=== PATIENT | male | born 1945 | race Caucasian/White ===

== ENCOUNTER 2017-04-02 15:10 | Emergency (ER) | payer OTHER ==
[~2017-04-02 15:10] MED LIST: ASPIR 8181 MG PO; ATORVASTATIN CA40 M1 PO; CHANTIX1 M1 PO; DIGOXIN0.125 M1 PO; ENALAPRIL MALE2.5 MG PO; FLO4 PO; LAC PO; LASIX20 MG PO; LEVOFLOXACIN500 M1 PO; LOPRESSOR50 MG PO; NOR10T PO; PACERONE200 MG PO; WARFARIN SODIUM5 MG PO
[2017-04-02 16:45] LABS: BASOPHIL % 0.6 % (0-2); PLATELET COUNT 178 x10^3mcL (130-400)
[2017-04-02 16:46] LABS: RED CELL DISTRIBUTION WIDTH 16.7 % (11.5-14.5)
[2017-04-02 16:54] LABS: CALCIUM 8.5 mg/dL (8.5-10.1); CARBON DIOXIDE 30.7 mmol/L (21-32); CHLORIDE SERUM 104 mmol/L (98-107); CREATININE SERUM 2.3 mg/dL (0.7-1.3); GLUCOSE SERUM 89 mg/dL (74-106); SODIUM SERUM 143 mmol/L (136-145)
[2017-04-02 16:59] LABS: ALKALINE PHOSPHATASE 55 U/L (46-116); ALT/SGPT 73 U/L (16-63); AST/SGOT 55 U/L (15-37); BILIRUBIN TOTAL 0.9 mg/dL (0.20-1.00); TOTAL PROTEIN, SERUM 7.2 g/dL (6.4-8.2)
[2017-04-02 17:03] LABS: ALBUMIN 3.1 g/dL (3.4-5.0)
[2017-04-02 20:00] VITALS: BP 165/82
== END 2017-04-02 20:00 | disposition home or self-care (01) ==
LOC: ED 15:10
PROVIDERS: Emergency Medicine
DX: E86.0 Dehydration (principal); I12.9 Hypertensive chronic kidney disease with stage 1 through stage 4 chronic kidney disease, or unspecified chronic kidney disease; N18.9 Chronic kidney disease, unspecified; R79.89 Other specified abnormal findings of blood chemistry; I21.3 ST elevation (STEMI) myocardial infarction of unspecified site; I51.9 Heart disease, unspecified; I25.10 Atherosclerotic heart disease of native coronary artery without angina pectoris; F17.210 Nicotine dependence, cigarettes, uncomplicated; Z79.899 Other long term (current) drug therapy
CPT/HCPCS: 83880; J7040; Q0092

== ENCOUNTER 2017-05-03 12:46 | Inpatient (IN) | payer OTHER ==
[~2017-05-03] VITALS: Ht 175.3 cm; Wt 91.6 kg
[2017-05-03 13:04] LABS: BASOPHIL % 0.7 % (0-2); PLATELET COUNT 196 x10^3mcL (130-400)
[2017-05-03 13:05] LABS: RED CELL DISTRIBUTION WIDTH 15.2 % (11.5-14.5)
[2017-05-03 13:17] LABS: CALCIUM 8.5 mg/dL (8.5-10.1); CARBON DIOXIDE 24.2 mmol/L (21-32); CHLORIDE SERUM 101 mmol/L (98-107); CREATININE SERUM 2.3 mg/dL (0.7-1.3); GLUCOSE SERUM 131 mg/dL (74-106); POTASSIUM SERUM 3.5 mmol/L (3.5-5.1); SODIUM SERUM 134 mmol/L (136-145)
[2017-05-03 13:21] LABS: ALKALINE PHOSPHATASE 62 U/L (46-116); ALT/SGPT 81 U/L (16-63); AST/SGOT 69 U/L (15-37); BILIRUBIN TOTAL 1.07 mg/dL (0.20-1.00); LIPASE 173 IU/L (73-393); TOTAL PROTEIN, SERUM 7.4 g/dL (6.4-8.2); TRIGLYCERIDES 46 mg/dL (<150)
[2017-05-03 13:25] LABS: ALBUMIN 3.1 g/dL (3.4-5.0); CHOLESTEROL 111 mg/dL (<200); CHOLESTEROL/HDL RATIO 1.7; HDL CHOLESTEROL 66 mg/dL (40-60)
[2017-05-03 13:33] LABS: FREE T4 1.67 ng/dL (0.76-1.46); FREE THYROXINE INDEX 5.1 ug/dL (1.4-4.5); T4(THYROXINE) 13.3 ug/dL (4.7-13.3)
[2017-05-03 13:47] LABS: T3 TOTAL 0.56 ng/mL
[2017-05-03 14:47] VITALS: BP 145/69
[2017-05-03] MEDS ORDERED: IBUPROFEN600 MG PO (15:55)
[2017-05-03 17:29] VITALS: BP 159/73
[2017-05-03 17:41] VITALS: BP 159/73
[2017-05-03 20:32] VITALS: BP 119/65
[2017-05-04 05:37] VITALS: BP 139/63
[2017-05-04 06:25] LABS: CALCIUM 8.2 mg/dL (8.5-10.1); CARBON DIOXIDE 27.7 mmol/L (21-32); CHLORIDE SERUM 105 mmol/L (98-107); CREATININE SERUM 2.1 mg/dL (0.7-1.3); GLUCOSE SERUM 105 mg/dL (74-106); MAGNESIUM 1.8 mg/dL (1.8-2.4); PHOSPHOROUS 3.6 mg/dL (2.5-4.9); POTASSIUM SERUM 3.9 mmol/L (3.5-5.1); SODIUM SERUM 140 mmol/L (136-145)
[2017-05-04 06:31] LABS: BASOPHIL % 0.4 % (0-2); PLATELET COUNT 133 x10^3mcL (130-400); RED CELL DISTRIBUTION WIDTH 15.3 % (11.5-14.5)
[2017-05-04 09:23] VITALS: BP 108/50
[2017-05-04 14:23] LABS: UA SPECIFIC GRAVITY 1.025 (1.005-1.035); microscopic required? YES; urine erythrocyte TRACE (NEGATIVE)
[2017-05-04 15:08] VITALS: BP 118/62
[2017-05-04 18:15] VITALS: BP 124/58
[2017-05-04 21:38] VITALS: BP 111/48; BP 140/61
[2017-05-05 04:50] VITALS: BP 135/62
[2017-05-05 06:33] LABS: BASOPHIL % 0.2 % (0-2)
[2017-05-05 06:46] LABS: CARBON DIOXIDE 25.9 mmol/L (21-32); CHLORIDE SERUM 107 mmol/L (98-107); CREATININE SERUM 1.9 mg/dL (0.7-1.3); GLUCOSE SERUM 104 mg/dL (74-106); MAGNESIUM 1.7 mg/dL (1.8-2.4); PHOSPHOROUS 2.7 mg/dL (2.5-4.9); POTASSIUM SERUM 3.7 mmol/L (3.5-5.1); SODIUM SERUM 143 mmol/L (136-145)
[2017-05-05 06:47] LABS: PLATELET COUNT 125 x10^3mcL (130-400); RED CELL DISTRIBUTION WIDTH 15.3 % (11.5-14.5)
[2017-05-05 09:30] VITALS: BP 108/52
[2017-05-05 14:05] VITALS: BP 127/57
[2017-05-05 17:13] VITALS: BP 118/63
[2017-05-05 21:22] VITALS: BP 140/72
[2017-05-06 06:06] VITALS: BP 123/64
[2017-05-06 11:01] LABS: CALCIUM 8.6 mg/dL (8.5-10.1); CARBON DIOXIDE 28.3 mmol/L (21-32); CHLORIDE SERUM 103 mmol/L (98-107); CREATININE SERUM 2.1 mg/dL (0.7-1.3); GLUCOSE SERUM 117 mg/dL (74-106); PHOSPHOROUS 2.9 mg/dL (2.5-4.9); POTASSIUM SERUM 3.9 mmol/L (3.5-5.1); SODIUM SERUM 139 mmol/L (136-145)
[2017-05-06 11:02] LABS: BASOPHIL % 0.2 % (0-2); PLATELET COUNT 145 x10^3mcL (130-400)
[2017-05-06 11:06] LABS: RED CELL DISTRIBUTION WIDTH 15.6 % (11.5-14.5)
[2017-05-06 12:15] VITALS: BP 127/56
[2017-05-06] MEDS ORDERED: THI100 PO (13:02)
[2017-05-06] MEDS ORDERED: FOL1 PO (13:02)
[2017-05-06] MEDS ORDERED: THERA TABS1 TAB PO (13:02)
[2017-05-06] MEDS ORDERED: APAP/HYDROCODON1 T13 PO (13:42)
[2017-05-06] MEDS ORDERED: TYL325 PO (13:44)
[2017-05-06] MEDS ORDERED: ASPIR 8181 MG PO (13:56)
== END 2017-05-06 15:30 | disposition home or self-care (01) | DRG 312 ==
LOC: ED 12:46 → MU 13:23 → DU 13:23 → MU 05-06 09:52
PROVIDERS: Family Medicine; Specialist; ADMIT Family Medicine
DX: I95.1 Orthostatic hypotension (principal); N17.0 Acute kidney failure with tubular necrosis; I50.43 Acute on chronic combined systolic (congestive) and diastolic (congestive) heart failure; E87.1 Hypo-osmolality and hyponatremia; I42.8 Other cardiomyopathies; I11.0 Hypertensive heart disease with heart failure; I48.91 Unspecified atrial fibrillation; E78.5 Hyperlipidemia, unspecified; I25.10 Atherosclerotic heart disease of native coronary artery without angina pectoris; I25.2 Old myocardial infarction; Z68.29 Body mass index [BMI] 29.0-29.9, adult; Z95.1 Presence of aortocoronary bypass graft; F17.210 Nicotine dependence, cigarettes, uncomplicated; Z79.1 Long term (current) use of non-steroidal anti-inflammatories (NSAID); J44.9 Chronic obstructive pulmonary disease, unspecified; Z82.49 Family history of ischemic heart disease and other diseases of the circulatory system; Z80.9 Family history of malignant neoplasm, unspecified
CPT/HCPCS: 83880; 84439; 97110-GP; 97116-GP; 97530-GP; G0480; J1885; J3475; J7030; J7620; J7633; Q0092

== ENCOUNTER 2017-08-10 11:48 | Emergency (ER) | payer OTHER ==
[~2017-08-10] VITALS: Ht 172.7 cm; Wt 97.5 kg
[~2017-08-10 11:48] MED LIST changes: +APAP/HYDROCODON1 T13 PO; +FOL1 PO; +IBUPROFEN600 MG PO; +THERA TABS1 TAB PO; +THI100 PO; +TYL325 PO
[2017-08-10 14:53] VITALS: BP 155/78
== END 2017-08-10 14:53 | disposition short-term general hospital (02) ==
LOC: ED 11:48
DX: S02.82XA Fracture of other specified skull and facial bones, left side, initial encounter for closed fracture (principal); S50.812A Abrasion of left forearm, initial encounter; I10 Essential (primary) hypertension; I48.91 Unspecified atrial fibrillation; I25.2 Old myocardial infarction; Z95.1 Presence of aortocoronary bypass graft; W22.09XA Striking against other stationary object, initial encounter; Y93.89 Activity, other specified; Y99.8 Other external cause status; Y92.481 Parking lot as the place of occurrence of the external cause

== ENCOUNTER 2017-10-21 08:30 | Emergency (ER) | payer OTHER ==
[2017-10-21 10:39] VITALS: BP 105/65
== END 2017-10-21 10:55 | disposition home or self-care (01) ==
LOC: ED 08:30
DX: S50.311A Abrasion of right elbow, initial encounter (principal); G89.29 Other chronic pain; M54.9 Dorsalgia, unspecified; F17.210 Nicotine dependence, cigarettes, uncomplicated; E78.5 Hyperlipidemia, unspecified; I10 Essential (primary) hypertension; Z90.49 Acquired absence of other specified parts of digestive tract; W18.30XA Fall on same level, unspecified, initial encounter; Y93.89 Activity, other specified; Y92.89 Other specified places as the place of occurrence of the external cause; Y99.8 Other external cause status

== ENCOUNTER 2017-11-28 15:20 | Inpatient (IN) | payer BC, OTHER ==
[~2017-11-28] VITALS: Ht 172.7 cm; Wt 82.6 kg
[2017-11-28 15:52] LABS: BASOPHIL % 0.1 % (0-2); PLATELET COUNT 242 x10^3mcL (130-400)
[2017-11-28 15:54] LABS: RED CELL DISTRIBUTION WIDTH 16.6 % (11.5-14.5)
[2017-11-28 15:59] LABS: CALCIUM 7.8 mg/dL (8.5-10.1); CARBON DIOXIDE 23.5 mmol/L (21-32); CHLORIDE SERUM 99 mmol/L (98-107); CREATININE SERUM 2.6 mg/dL (0.7-1.3); GLUCOSE SERUM 111 mg/dL (74-106); POTASSIUM SERUM 3.8 mmol/L (3.5-5.1); SODIUM SERUM 134 mmol/L (136-145)
[2017-11-28 16:04] LABS: ALKALINE PHOSPHATASE 68 U/L (46-116); ALT/SGPT 74 U/L (16-63); AST/SGOT 56 U/L (15-37); BILIRUBIN TOTAL 1.2 mg/dL (0.20-1.00); TOTAL PROTEIN, SERUM 6.3 g/dL (6.4-8.2)
[2017-11-28 16:05] LABS: ALBUMIN 2.2 g/dL (3.4-5.0)
[2017-11-28 18:25] VITALS: BP 146/63
[2017-11-28 18:48] LABS: MAGNESIUM 1.7 mg/dL (1.8-2.4)
[2017-11-28 18:49] LABS: CHOLESTEROL/HDL RATIO 1.7
[2017-11-28 18:53] LABS: T3 TOTAL 0.56 ng/mL
[2017-11-28 19:02] LABS: FREE T4 2.17 ng/dL (0.76-1.46)
[2017-11-28 19:03] LABS: T4(THYROXINE) 14.4 ug/dL (4.7-13.3)
[2017-11-28 21:42] VITALS: BP 111/47
[2017-11-28 23:10] LABS: microscopic required? YES; urine erythrocyte NEGATIVE (NEGATIVE)
[2017-11-28 23:19] LABS: AMPHETAMINE QUAL UR NONE DETECTED (NEG <=1000)
[2017-11-29 06:01] VITALS: BP 104/48
[2017-11-29 07:41] LABS: CARBON DIOXIDE 25.4 mmol/L (21-32); CHLORIDE SERUM 104 mmol/L (98-107); CREATININE SERUM 2.6 mg/dL (0.7-1.3); GLUCOSE SERUM 98 mg/dL (74-106); MAGNESIUM 2.2 mg/dL (1.8-2.4); PHOSPHOROUS 3.4 mg/dL (2.5-4.9); POTASSIUM SERUM 4.2 mmol/L (3.5-5.1); SODIUM SERUM 136 mmol/L (136-145)
[2017-11-29 09:15] LABS: BASOPHIL % 0.5 % (0-2); PLATELET COUNT 188 x10^3mcL (130-400)
[2017-11-29 09:31] LABS: RED CELL DISTRIBUTION WIDTH 16.3 % (11.5-14.5)
[2017-11-29 09:52] VITALS: BP 100/44
[2017-11-29 12:30] VITALS: BP 80/36
[2017-11-29 13:00] VITALS: BP 92/44
[2017-11-29 17:30] VITALS: BP 98/43
[2017-11-29 21:04] VITALS: BP 117/45
[2017-11-30] VITALS (7 sets, daily range): BP systolic 89–133; BP diastolic 42–61
[2017-11-30 17:36] LABS: CALCIUM 7.8 mg/dL (8.5-10.1); CARBON DIOXIDE 25.9 mmol/L (21-32); CHLORIDE SERUM 103 mmol/L (98-107); CREATININE SERUM 2.1 mg/dL (0.7-1.3); GLUCOSE SERUM 98 mg/dL (74-106); MAGNESIUM 1.8 mg/dL (1.8-2.4); PHOSPHOROUS 2.8 mg/dL (2.5-4.9); POTASSIUM SERUM 3.6 mmol/L (3.5-5.1); SODIUM SERUM 136 mmol/L (136-145)
[2017-11-30 19:18] LABS: PLATELET COUNT 173 x10^3mcL (130-400)
[2017-11-30 19:30] LABS: BASOPHIL % 0 % (0-2); RED CELL DISTRIBUTION WIDTH 16.5 % (11.5-14.5)
[2017-12-01 06:21] VITALS: BP 116/61
[2017-12-01 06:29] LABS: BASOPHIL % 0.3 % (0-2); PLATELET COUNT 192 x10^3mcL (130-400); RED CELL DISTRIBUTION WIDTH 16.1 % (11.5-14.5)
[2017-12-01 06:36] LABS: CALCIUM 7.6 mg/dL (8.5-10.1); CARBON DIOXIDE 27.9 mmol/L (21-32); CHLORIDE SERUM 105 mmol/L (98-107); CREATININE SERUM 1.9 mg/dL (0.7-1.3); GLUCOSE SERUM 97 mg/dL (74-106); MAGNESIUM 1.8 mg/dL (1.8-2.4); PHOSPHOROUS 3.6 mg/dL (2.5-4.9); POTASSIUM SERUM 3.7 mmol/L (3.5-5.1); SODIUM SERUM 139 mmol/L (136-145)
[2017-12-01 10:00] VITALS: BP 111/67
[2017-12-01 14:27] VITALS: BP 92/44
[2017-12-01 18:27] VITALS: BP 104/52
[2017-12-01 19:30] VITALS: BP 100/49
[2017-12-01 21:22] VITALS: BP 95/44
[2017-12-02 05:06] VITALS: BP 101/46
[2017-12-02 06:35] LABS: BASOPHIL % 0.2 % (0-2); PLATELET COUNT 195 x10^3mcL (130-400)
[2017-12-02 06:39] LABS: CALCIUM 8.1 mg/dL (8.5-10.1); CARBON DIOXIDE 28.9 mmol/L (21-32); CHLORIDE SERUM 105 mmol/L (98-107); CREATININE SERUM 1.9 mg/dL (0.7-1.3); GLUCOSE SERUM 94 mg/dL (74-106); MAGNESIUM 1.9 mg/dL (1.8-2.4); PHOSPHOROUS 3.5 mg/dL (2.5-4.9); POTASSIUM SERUM 3.7 mmol/L (3.5-5.1); SODIUM SERUM 138 mmol/L (136-145)
[2017-12-02 06:44] LABS: RED CELL DISTRIBUTION WIDTH 16.8 % (11.5-14.5)
[2017-12-02 09:53] VITALS: BP 90/43
[2017-12-02 12:04] VITALS: BP 111/46
[2017-12-02 12:05] VITALS: BP 111/46
[2017-12-02 16:51] VITALS: BP 100/45
[2017-12-02 21:03] VITALS: BP 125/48
[2017-12-03 05:50] VITALS: BP 105/63
[2017-12-03 06:44] LABS: BASOPHIL % 0.2 % (0-2); PLATELET COUNT 226 x10^3mcL (130-400)
[2017-12-03 06:51] LABS: RED CELL DISTRIBUTION WIDTH 16.6 % (11.5-14.5)
[2017-12-03 06:59] LABS: CARBON DIOXIDE 27.4 mmol/L (21-32); CHLORIDE SERUM 106 mmol/L (98-107); CREATININE SERUM 1.7 mg/dL (0.7-1.3); GLUCOSE SERUM 101 mg/dL (74-106); MAGNESIUM 1.7 mg/dL (1.8-2.4); PHOSPHOROUS 2.7 mg/dL (2.5-4.9); POTASSIUM SERUM 3.8 mmol/L (3.5-5.1); SODIUM SERUM 141 mmol/L (136-145)
[2017-12-03 10:19] VITALS: BP 112/46
[2017-12-03 14:30] VITALS: BP 109/47
[2017-12-03 17:00] VITALS: BP 139/62
[2017-12-03 20:35] VITALS: BP 127/56
[2017-12-03 20:42] VITALS: BP 139/62
[2017-12-04 01:27] VITALS: BP 107/46
[2017-12-04 04:50] VITALS: BP 108/51
[2017-12-04 06:46] LABS: CALCIUM 7.8 mg/dL (8.5-10.1); CARBON DIOXIDE 29.1 mmol/L (21-32); CHLORIDE SERUM 106 mmol/L (98-107); CREATININE SERUM 1.8 mg/dL (0.7-1.3); GLUCOSE SERUM 89 mg/dL (74-106); MAGNESIUM 1.9 mg/dL (1.8-2.4); POTASSIUM SERUM 4.3 mmol/L (3.5-5.1); SODIUM SERUM 143 mmol/L (136-145)
[2017-12-04 06:56] LABS: BASOPHIL % 0.1 % (0-2); PLATELET COUNT 236 x10^3mcL (130-400)
[2017-12-04 09:20] VITALS: BP 106/47
[2017-12-04 14:33] VITALS: BP 105/46
[2017-12-04 17:36] VITALS: BP 118/50
[2017-12-04 21:49] VITALS: BP 120/48
[2017-12-05 06:09] LABS: CALCIUM 7.8 mg/dL (8.5-10.1); CARBON DIOXIDE 31.3 mmol/L (21-32); CHLORIDE SERUM 106 mmol/L (98-107); CREATININE SERUM 1.8 mg/dL (0.7-1.3); GLUCOSE SERUM 101 mg/dL (74-106); POTASSIUM SERUM 4.1 mmol/L (3.5-5.1); SODIUM SERUM 144 mmol/L (136-145)
[2017-12-05 06:12] LABS: BASOPHIL % 0.2 % (0-2); PLATELET COUNT 253 x10^3mcL (130-400)
[2017-12-05 06:14] VITALS: BP 104/47
[2017-12-05 08:54] VITALS: BP 112/47
[2017-12-05 11:13] VITALS: Ht 172.7 cm; Wt 82.6 kg
[2017-12-05 13:29] VITALS: BP 111/43
[2017-12-05 16:56] VITALS: BP 117/54
[2017-12-05 21:04] VITALS: BP 94/41
[2017-12-05 23:05] VITALS: BP 104/46
[2017-12-06 05:03] VITALS: BP 134/52
[2017-12-06 06:49] LABS: CALCIUM 8.2 mg/dL (8.5-10.1); CARBON DIOXIDE 28.7 mmol/L (21-32); CHLORIDE SERUM 109 mmol/L (98-107); CREATININE SERUM 1.8 mg/dL (0.7-1.3); GLUCOSE SERUM 122 mg/dL (74-106); POTASSIUM SERUM 4.4 mmol/L (3.5-5.1); SODIUM SERUM 147 mmol/L (136-145)
[2017-12-06 09:27] VITALS: BP 115/46
[2017-12-06 09:52] LABS: BASOPHIL % 0.1 % (0-2); PLATELET COUNT 289 x10^3mcL (130-400)
[2017-12-06 09:56] LABS: RED CELL DISTRIBUTION WIDTH 16.6 % (11.5-14.5)
[2017-12-06 13:04] VITALS: BP 109/46
[2017-12-06 17:19] VITALS: BP 105/41
[2017-12-06 21:18] VITALS: BP 115/45
[2017-12-07 05:15] VITALS: BP 119/64
[2017-12-07 06:44] LABS: BASOPHIL % 0.4 % (0-2); PLATELET COUNT 333 x10^3mcL (130-400)
[2017-12-07 06:50] LABS: RED CELL DISTRIBUTION WIDTH 16.9 % (11.5-14.5)
[2017-12-07 08:03] VITALS: BP 114/51
[2017-12-07 08:12] LABS: CALCIUM 8.6 mg/dL (8.5-10.1); CARBON DIOXIDE 34.2 mmol/L (21-32); CHLORIDE SERUM 111 mmol/L (98-107); CREATININE SERUM 1.9 mg/dL (0.7-1.3); GLUCOSE SERUM 98 mg/dL (74-106); POTASSIUM SERUM 4.1 mmol/L (3.5-5.1); SODIUM SERUM 150 mmol/L (136-145)
[2017-12-07 09:09] VITALS: BP 114/51
[2017-12-07 13:36] VITALS: BP 107/49
[2017-12-07 15:05] LABS: ALBUMIN 1.7 g/dL (3.4-5.0); ALKALINE PHOSPHATASE 70 U/L (46-116); ALT/SGPT 127 U/L (16-63); AST/SGOT 174 U/L (15-37); BILIRUBIN DIRECT 0.37 mg/dL (0.0-0.2); BILIRUBIN TOTAL 0.6 mg/dL (0.20-1.00); TOTAL PROTEIN, SERUM 6.9 g/dL (6.4-8.2)
[2017-12-07 16:22] VITALS: BP 111/64
[2017-12-07 17:56] LABS: CALCIUM 8.2 mg/dL (8.5-10.1); CARBON DIOXIDE 33.5 mmol/L (21-32); CHLORIDE SERUM 111 mmol/L (98-107); GLUCOSE SERUM 97 mg/dL (74-106); POTASSIUM SERUM 3.8 mmol/L (3.5-5.1); SODIUM SERUM 150 mmol/L (136-145)
[2017-12-07 21:36] VITALS: BP 131/53
[2017-12-08 06:01] VITALS: BP 101/42
[2017-12-08 07:17] LABS: BASOPHIL % 0.2 % (0-2); PLATELET COUNT 332 x10^3mcL (130-400)
[2017-12-08 07:18] LABS: RED CELL DISTRIBUTION WIDTH 16.7 % (11.5-14.5)
[2017-12-08 07:24] LABS: CALCIUM 8.2 mg/dL (8.5-10.1); CHLORIDE SERUM 111 mmol/L (98-107); CREATININE SERUM 2.3 mg/dL (0.7-1.3); GLUCOSE SERUM 96 mg/dL (74-106); MAGNESIUM 2.7 mg/dL (1.8-2.4); PHOSPHOROUS 3.8 mg/dL (2.5-4.9); POTASSIUM SERUM 4.3 mmol/L (3.5-5.1); SODIUM SERUM 152 mmol/L (136-145)
[2017-12-08 09:07] VITALS: BP 94/41
[2017-12-08 13:39] VITALS: BP 122/63
[2017-12-08 17:07] VITALS: BP 121/48
[2017-12-08 20:35] VITALS: BP 105/43; BP 135/48
[2017-12-08 20:35] LABS: CALCIUM 8.2 mg/dL (8.5-10.1); CARBON DIOXIDE 32.9 mmol/L (21-32); CHLORIDE SERUM 114 mmol/L (98-107); CREATININE SERUM 2.2 mg/dL (0.7-1.3); GLUCOSE SERUM 95 mg/dL (74-106); POTASSIUM SERUM 4.2 mmol/L (3.5-5.1); SODIUM SERUM 151 mmol/L (136-145)
[2017-12-09 05:40] VITALS: BP 96/39
[2017-12-09 06:21] LABS: BASOPHIL % 0.3 % (0-2); PLATELET COUNT 394 x10^3mcL (130-400)
[2017-12-09 06:52] LABS: RED CELL DISTRIBUTION WIDTH 16.7 % (11.5-14.5)
[2017-12-09 06:59] LABS: CALCIUM 8.3 mg/dL (8.5-10.1); CARBON DIOXIDE 30.7 mmol/L (21-32); CHLORIDE SERUM 115 mmol/L (98-107); CREATININE SERUM 2.5 mg/dL (0.7-1.3); GLUCOSE SERUM 86 mg/dL (74-106); MAGNESIUM 2.8 mg/dL (1.8-2.4); PHOSPHOROUS 3.1 mg/dL (2.5-4.9); POTASSIUM SERUM 4.2 mmol/L (3.5-5.1); SODIUM SERUM 152 mmol/L (136-145)
[2017-12-09 10:23] VITALS: BP 96/41
== END 2017-12-09 14:20 | disposition expired | DRG 177 ==
LOC: ED 15:20 → DU 16:04 → ED 16:04 → DU 16:49
PROVIDERS: Emergency Medicine; Family Medicine; Family Medicine Sports Medicine; Student in an Organized Health Care Education/Training Program
DX: J69.0 Pneumonitis due to inhalation of food and vomit (principal); N17.0 Acute kidney failure with tubular necrosis; E43 Unspecified severe protein-calorie malnutrition; J96.01 Acute respiratory failure with hypoxia; G93.41 Metabolic encephalopathy; E87.1 Hypo-osmolality and hyponatremia; M48.56XA Collapsed vertebra, not elsewhere classified, lumbar region, initial encounter for fracture; F10.239 Alcohol dependence with withdrawal, unspecified; N13.30 Unspecified hydronephrosis; G90.9 Disorder of the autonomic nervous system, unspecified; W18.39XA Other fall on same level, initial encounter; Y93.89 Activity, other specified; Y92.091 Bathroom in other non-institutional residence as the place of occurrence of the external cause; Y99.8 Other external cause status; I48.91 Unspecified atrial fibrillation; Z98.42 Cataract extraction status, left eye; Z98.41 Cataract extraction status, right eye; Z90.49 Acquired absence of other specified parts of digestive tract; E78.5 Hyperlipidemia, unspecified; I12.9 Hypertensive chronic kidney disease with stage 1 through stage 4 chronic kidney disease, or unspecified chronic kidney disease; D64.9 Anemia, unspecified; E83.51 Hypocalcemia; I25.10 Atherosclerotic heart disease of native coronary artery without angina pectoris; J44.9 Chronic obstructive pulmonary disease, unspecified; Z95.1 Presence of aortocoronary bypass graft; F17.200 Nicotine dependence, unspecified, uncomplicated; E02 Subclinical iodine-deficiency hypothyroidism; N18.3 Chronic kidney disease, stage 3 (moderate); I45.10 Unspecified right bundle-branch block; I11.9 Hypertensive heart disease without heart failure; N40.0 Benign prostatic hyperplasia without lower urinary tract symptoms; F32.9 Major depressive disorder, single episode, unspecified; Y90.9 Presence of alcohol in blood, level not specified; Z66 Do not resuscitate; E86.0 Dehydration; R91.8 Other nonspecific abnormal finding of lung field; K76.9 Liver disease, unspecified; I46.9 Cardiac arrest, cause unspecified
CPT/HCPCS: 36600; 83880; 84439; 92610-GN; 97110-GP; 97530-GP; G0480; J0132; J0696; J1885; J1940; J2060; J2270; J2543; J3475; J3480; J7030; J7620; Q0092; Q9967